=== PATIENT | male | born 1990 | race Caucasian/White ===

== ENCOUNTER 2024-04-16 18:19 | Emergency (ER) | payer OTHER, SELFPAY ==
[2024-04-16 19:08] VITALS: BP 135/80; PULSE 111; RESP 16; TEMP 36.5; O2SAT 96
--- NOTE | 2024-04-16 19:54 | ED.URI ---
HPI - URI/Sore Throat General Chief Complaint: Upper Respiratory Infection Stated Complaint: fever Time Seen by Provider: 04/16/24 19:40 Source: patient, RN notes reviewed and old records reviewed Mode of arrival: ambulatory Limitations: no limitations History of Present Illness HPI Narrative: 33 year old male presents to [facility] with complaints of fever, chills, body aches and cough for the past 2 days. Patient reports that he had COVID 3 weeks ago. MD elicited complaint: fever, cough and other (chills body aches) Pertinent past history: other (covid 3 weeks ago) Onset (ago): day(s) (2) Severity: moderate Able to tolerate fluids by mouth: Yes Treatments prior to arrival: acetaminophen and other (took some Zithromax) Related Data Allergies Allergy/AdvReac Type Severity Reaction Status Date / Time No Known Allergies Allergy Verified 04/16/24 19:36 Review of Systems Review of Systems: CONSTITUTIONAL: Reports malaise, chills, sweats, or fever. EYES: Denies visual changes, redness, or discharge. ENT: Reports rhinorrhea, congestion, sinus pain, no otalgia and no sore throat. CARDIOVASCULAR: Denies chest pain, palpitations, or edema. RESPIRATORY: Reports cough.? Denies dyspnea. GASTROINTESTINAL: Denies abdominal pain, nausea, vomiting, diarrhea SKIN: Denies rash or itching. MUSCULOSKELETAL: Reports myalgia. NEUROLOGIC: Denies headache. All systems reviewed & are unremarkable except as noted in HPI and below PMFSH Past Medical History Medical History (Updated 04/17/24 @ 20:47 by Kathleen Lara NP) COVID-28 March 2024 Social History Social History (Updated 04/17/24 @ 20:48 by Kathleen Lara NP) Smoking status: Never smoker Alcohol intake: current Alcohol use details: social Living arrangements: with family Gender identity (if verbalized by the patient): Male Comments At time of signature, agree with nursing past medical, surgical, social and family history. There is no relevant family history pertinent to the presenting complaint Exam Narrative: GENERAL: Well-appearing, well-nourished, and in no acute distress. HEAD: Normocephalic EYES: PERRLA, conjunctivae clear ENT: Nares clear, turbinates edematous and erythematous, clear discharge. Mucous membranes moist. TM pearly vo with dull light reflex bilaterally; no tragal tenderness. Oropharynx erythematous without lesions. Tonsils not enlarged and without exudate, no drooling, no hoarseness, no trismus, uvula midline.post nasal drainage NECK: Supple. No lymphadenopathy CHEST: Clear to auscultation, breath sounds equal. No wheezing, rhonchi, rales, or stridor. No respiratory distress, speaks in full sentences.cough SAO2 96% on room air HEART: Regular rate and rhythm. No murmur heard. SKIN: Warm, dry, no rash. NEURO: Alert and oriented x3. PSYCH: Normal mood and affect Course Course Emergency Course: Patient is aware of diagnosis, understands and agrees to treatment plan.? Anticipatory guidance given.? Patient agrees to follow-up as directed and is aware of reasons to seek care at the emergency department. Portions of this record may have been created with voice recognition software Level of Care: Express Care Visit Vital Signs Vital signs: Vital Signs Temperature 36.5 C 04/16/24 19:08 Pulse Rate 111 H 04/16/24 19:08 Respiratory Rate 16 04/16/24 19:08 Blood Pressure 135/80 04/16/24 19:08 Pulse Oximetry 96 04/16/24 19:08 Temperature 36.5 C 04/16/24 19:08 Pulse Rate 111 H 04/16/24 19:08 Respiratory Rate 16 04/16/24 19:08 Blood Pressure 135/80 04/16/24 19:08 Pulse Oximetry 96 04/16/24 19:08 Oxygen Delivery Room Air 04/16/24 19:15 Reviewed MDM - URI/Sore Throat MDM Narrative Medical decision making narrative: Differential diagnosis considered: Dye virus, strep pharyngitis, allergic rhinitis, upper respiratory tract infection, sinusitis, rhinosinus
== END 2024-04-16 20:08 | disposition home or self-care (01) ==
PROVIDERS: Emergency Provider Registered Nurse
DX: J06.9 Acute upper respiratory infection, unspecified (principal); Z86.16 Personal history of COVID-19
CPT/HCPCS: 99203; G0463